=== PATIENT | female | born 1970 | race Caucasian/White ===

== ENCOUNTER 2018-03-26 20:26 | Emergency (ER) | payer OTHER ==
[2018-03-26 20:39] VITALS: BP 143/89; PULSE 106; TEMP 98.4; BMI 32.9
[2018-03-26] MEDS ORDERED: NAPROXEN 500 MG TABLET (FP) PO ONE (21:21)
[2018-03-26] MEDS ORDERED: diazePAM 5 MG TABLET PO ONE (21:21)
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
[2018-03-26] MEDS ORDERED: NAPROXEN 500 MG TABLET (FP) ONE (21:25)
[2018-03-26] MEDS ORDERED: diazePAM 5 MG TABLET ONE (21:26)
== END 2018-03-26 21:56 | disposition home or self-care (01) ==
LOC: JERFT 20:26
DX: M54.5 Low back pain (principal); V43.62XA Car passenger injured in collision with other type car in traffic accident, initial encounter; Y92.414 Local residential or business street as the place of occurrence of the external cause; Y93.89 Activity, other specified; Y99.8 Other external cause status
CPT/HCPCS: 99281-25

== ENCOUNTER 2018-08-11 19:00 | Emergency (ER) | payer SELFPAY ==
[2018-08-11 19:05] VITALS: BMI 31.8
--- NOTE | 2018-08-11 19:05 | PDOC ---
Rapid Medical Evaluation Time Seen by Provider: 08/11/18 19:02 Medical Evaluation: Allergies Allergy/AdvReac Type Severity Reaction Status Date / Time No Known Allergies Allergy Verified 03/26/18 21:15 08/11/18 19:02 I have performed a brief in-person evaluation of this patient. The patient presents with a chief complaint of: sore throat Pertinent physical exam findings:stable and in NAD, non-focal I have ordered the following: rapid strep, ekg, provider to do further evaluation The patient will proceed to the ED for further evaluation. 08/11/18 19:24
--- NOTE | 2018-08-11 20:16 | PDOC ---
*Physical Exam - Vital Signs Last Vital Signs Temp Pulse Resp BP Pulse Ox 98.5 F 115 H 18 132/91 97 08/11/18 19:03 08/11/18 19:03 08/11/18 19:03 08/11/18 19:03 08/11/18 19:03 Medical Decision Making - Medical Decision Making 08/11/18 20:16 Patient seen by the advanced practice provider under my direct supervision. Ancillary testing reviewed as necessary. I agree with plan as outlined by the advanced practice provider. *DC/Admit/Observation/Transfer Diagnosis at time of Disposition: Throat pain - Referrals - Patient Instructions - Post Discharge Activity
[2018-08-11] MEDS ORDERED: IBUPROFEN 400 MG TABLET (FP) PO ONE (20:54)
--- NOTE | 2018-08-11 21:08 | PDOC ---
History of Present Illness - General Chief Complaint: Sore Throat Stated Complaint: SORE THROAT, NOT EATING MUCH, TACHY Time Seen by Provider: 08/11/18 19:02 History Source: Patient Exam Limitations: No Limitations Past History - Past Medical History Allergies/Adverse Reactions: Allergies Allergy/AdvReac Type Severity Reaction Status Date / Time No Known Allergies Allergy Verified 08/11/18 19:05 Home Medications: Ambulatory Orders Methocarbamol [Robaxin -] 1,500 mg PO Q8H #30 tablet 03/26/18 COPD: No Hypercholesterolemia: Yes (border line) - Suicide/Smoking/Psychosocial Hx Smoking History: Never smoked Information on smoking cessation initiated: No Hx Alcohol Use: No Drug/Substance Use Hx: No Substance Use Type: None *Physical Exam - Vital Signs Last Vital Signs Temp Pulse Resp BP Pulse Ox 98.5 F 115 H 18 132/91 97 08/11/18 19:03 08/11/18 19:03 08/11/18 19:03 08/11/18 19:03 08/11/18 19:03 - Physical Exam General Appearance: No: Apparent Distress HEENT: positive: Normal Voice, TMs Normal, Pharynx Normal. negative: Muffled/ Hoarse voice, Tonsillar Erythema, Nasal Congestion, Rhinorrhea, Sinus Tenderness Neck: negative: Thyromegaly Respiratory/Chest: positive: Lungs Clear, Normal Breath Sounds. negative: Respiratory Distress Cardiovascular: positive: Regular Rhythm, Regular Rate, S1, S2. negative: Murmur Gastrointestinal/Abdominal: positive: Normal Bowel Sounds, Soft. negative: Tender, Distended, Guarding, Rebound Extremity: negative: Swelling, Calf Tenderness Integumentary: positive: Normal Color Neurologic: positive: Alert, Normal Mood/Affect Medical Decision Making - Medical Decision Making 48 y/o F hx of chronic back pain presents with throat pain x 3 days along with dry cough and subjective fever 2 days ago. Mentions the throat discomfort is bothering her the most. States feels like something is in her throat, but has been eating and drinking normally. Also has minimal chest discomfort from coughing (experienced it 2 days ago and also a bit today). Denies ear pain, congestion, rhinorrhea, sob, abd pain, n/v/d, dysphagia. Denies smoking or drug use. Denies FH of CAD or GA PE unremarkable Rapid strep neg EKG Sinus tach at 103, no ST-T changes Not suspicious for any FB in throat given able to eat/drink; will refer to ENT for further eval Also consider ?thyroid issue (though that is not where patient points and no thyromegaly noted on exam) 08/11/18 21:03 *DC/Admit/Observation/Transfer Diagnosis at time of Disposition: Throat pain - Discharge Dispostion Disposition: HOME Condition at time of disposition: Stable Decision to Admit order: No - Referrals Referrals: Jake Somers MD [Staff Physician] - 2 Days Yomi Mcconnell MD [Staff Physician] - 2 Days - Patient Instructions Additional Instructions: Thank you for choosing [facility]. It was a pleasure taking care of you. You were tested negative for strep throat You were referred to ENT for further evaluation Also follow-up in primary care clinic to consider testing for your thyroid as well Return to the Emergency Department if your symptoms worsen or persist, you have fever, shortness of breath, chest pain, severe abdominal pain, vomiting or other concerning symptoms. - Post Discharge Activity
[2018-08-11] MEDS ORDERED: IBUPROFEN 600 MG TABLET (FP) PO ONE (21:18)
[2018-08-11 21:40] VITALS: BP 128/85; PULSE 98; TEMP 98.1
--- NOTE | 2018-08-12 12:58 | EKG ---
Test Reason : Blood Pressure : / mmHG Vent. Rate : 103 BPM Atrial Rate : 103 BPM P-R Int : 158 ms QRS Dur : 082 ms QT Int : 324 ms P-R-T Axes : 050 067 042 degrees QTc Int : 424 ms SINUS TACHYCARDIA POSSIBLE LATERAL INFARCT , AGE UNDETERMINED ABNORMAL ECG NO PREVIOUS ECGS AVAILABLE Confirmed by LEWIS HARRIS, COOKIE ([id number]) on 08/12/2018 12:57:42 PM Referred By: Confirmed By:COOKIE SAUCEDO MD
== END 2018-08-11 21:30 | disposition home or self-care (01) ==
LOC: JER 19:00
DX: R07.0 Pain in throat (principal)
CPT/HCPCS: 87070; 87880; 93005; 93010; 99282-25